=== PATIENT | male | born 1990 | race Two or more races ===

== ENCOUNTER 2025-02-18 09:13 | Emergency (ER) | payer BC ==
[~2025-02-18] VITALS: Ht 172.7 cm; Wt 125.6 kg
[2025-02-18 09:24] VITALS: TEMP 98.5
[2025-02-18] MEDS: methylPREDNISolone SOD SUCC 125 MG/2 ML VL IM ONE (10:00)
[2025-02-18 10:27] LABS: Hematocrit 50.0 % (41.0-53.0); Hemoglobin 17.2 g/dL (13.5-17.5); Mean Corpuscular Hemoglobin 30.0 pg (28.0-32.0); Mean Corpuscular Volume 87.3 fL (80.0-100.0); Nucleated Red Blood Cells % 0.2 %
--- NOTE | 2025-02-18 10:37 | ED.PDOC ---
Back pain HPI HPI Comments 34 year old male with no past medical history presents to the emergency department with a chief complaint of back pain onset 1 day. Patient states he was sitting down, stood up suddenly and shortly after began experiencing LT back pain. Patient also states pain was similar to when he had herniated discs in 2021. No other symptoms or modifying factors present at this time. Denies any history of cancer Denies fevers chills night sweats nausea vomiting unintentional weight loss Denies IV drug use history of HIV/TB Denies abdominal "tearing" pain Denies syncope Denies urinary incontinence or urinary changes Denies numbness tingling of the groin or inner thigh Chief Complaint: Back Pain Time Seen by MD: 10:00 Reviewed Notes: Nurses Notes, Medications, Allergies Allergies: Coded Allergies: Cyclobenzaprine (Verified Allergy, Unknown, 02/18/25) Ibuprofen (Verified Allergy, Unknown, 02/18/25) Home Meds Active Scripts Naproxen (Naproxen) 500 Mg Tab, 500 MG PO BIDPC for 10 Days, #20 TAB 0 Refills Prov:MADYSON TAMAYO NP 02/18/25 Methocarbamol (Methocarbamol) 500 Mg Tab, 500 MG PO Q8HP PRN for 10 Days, #30 TAB 0 Refills Prov:MADYSON TAMAYO NP 02/18/25 Information Source: Patient Mode of Arrival: Ambulatory Timing: Days Duration: Since onset Location of Back pain: (L) Lumbar Severity: Moderate Prehospital treatment: None Quality: Sharp Onset: Spontaneous Modifying Factors: Nothing Past Medical History PAST MEDICAL HISTORY: Denies Surgical History (Other): L4-L5 surgery Family History Family History: Reviewed,noncontributory to illness, No family hx of Cancer, No family hx of DM, No family hx of Heart vika, No family hx of HTN, No family hx ofKidney vika, No family hx of Liver vika, No family hx of Lung vika, No family hx of Stroke Social History Smoker: Non-Smoker Alcohol: Denies ETOH Use Drugs: Denies Drug Use Lives In: Home All Other Systems: Reviewed and Negative (as per HPI) Physical Exam General Appearance: Normal HEENT: Normal ENT Inspection, Pharynx Normal, TMs Normal Neck: Full Range of Motion, Non-Tender, Normal, Normal Inspection Respiratory: Chest Non-Tender, Lungs Clear, No Accessory Muscle Use, No Respiratory Distress, Normal Breath Sounds Cardiovascular: No Edema, No JVD, No Murmur, No Gallop, Normal Peripheral Pulses, Regular Rate/Rhythm Breast Exam: Deferred Gastrointestinal: No Organomegaly, Non Tender, No Pulsatile Mass, Normal Bowel Sounds, Soft Genitalia: Deferred Pelvic: Deferred Rectal: Deferred Extremities: No calf tenderness, Normal capillary refill, No pedal edema Musculoskeletal : Location: Left Extremity Location: Back (LT lumbosacral paraspinal TTP) Apperance: Normal Neurologic: Alert, vp training II-XII nml as Tested, No Motor Deficits, Normal Affect, Normal Mood, No Sensory Deficits Cerebellar Function: Normal Reflexes: Normal Skin: Dry, Normal Color, Warm Lymphatic: No Adenopathy Was a procedure done? Was a procedure done?: No Back Pain Differential Dx Differential Diagnosis: Musculoskeletal Pain X-Ray, Labs, Meds, VS Vital Signs Date Time Temp Pulse Resp B/P (MAP) Pulse Ox O2 Delivery O2 Flow Rate FiO2 02/18/25 10:50 91 18 97 Room Air 02/18/25 10:50 93 18 142/82 (102) 97 02/18/25 09:24 98.5 101 18 137/93 (108) 98 98.5 Lab Test 02/18/25 10:15 02/18/25 09:52 Range/Units White Blood Count 10.8 4.4-10.8 10^3/uL Red Blood Count 5.73 4.5-5.90 10^6/uL Hemoglobin 17.2 13.5-17.5 g/dL Hematocrit 50.0 41.0-53.0 % Mean Corpuscular Volume 87.3 80.0-100.0 fL Mean Corpuscular Hemoglobin 30.0 28.0-32.0 pg Mean Corpuscular Hemoglobin Concent 34.3 32.0-36.0 g/dL Red Cell Distribution Width 13.0 11.8-14.3 % Platelet Count 286 140-450 10^3/uL Mean Platelet Volume 9.8 6.9-10.8 fL Neutrophils (%) (Auto) 57.3 37.0-80.0 % Lymphocytes (%) (Auto) 31.4 10.0-50.0 % Monocytes (%) (Auto) 8.1 0.0-12.0 % Eosinophils (%) (Auto) 2.1 0.0-7.0 % Basophils (%) (Auto) 1.1 0.0-2.0 % Neutrophils # (Auto) 6.2 1.6-8.6 10 ^3/uL Lymphocytes # (Auto) 3.4 0.4-5.4 10 ^3/uL Monocytes # (Auto) 0.9 0-1.3 10 ^3/uL Eosinophils # (Auto) 0.2 0-0.8 10 ^3/uL Basophils # (Auto) 0.1 0-0.2 10 ^3/uL Nucleated Red Blood Cells 0.2 % Sodium Level 142 136-145 mmol/L Potassium Level 4.3 3.5-5.1 mmol/L Chloride Level 108 H 98-107 mmol/L Carbon Dioxide Level 25 20-31 mmol/L Anion Gap 9 5-15 Blood Urea Nitrogen 11 9-23 mg/dL Creatinine 1.01 0.700-1.30 mg/dL Glomerular Filtration Rate Calc 101 >90 mL/min BUN/Creatinine Ratio 10.9 10.0-20.0 Serum Glucose 107 H 74-106 mg/dL Calcium Level 10.3 8.7-10.4 mg/dL Urine Color Yellow Yellow Urine Clarity Clear Clear Urine pH 5.5 5.0-9.0 Urine Specific [place] 1.035 1.001-1.035 Urine Protein Trace H Negative Urine Ketones Negative Negative Urine Blood Negative Negative /uL Urine Nitrite Negative Negative Urine Bilirubin Negative Negative Urine Urobilinogen Normal Negative mg/dL Urine Leukocyte Esterase Negative Negative /uL Urine RBC 1 0 - 3 /hpf Urine Microscopic WBC < 1 0-3 /HPF Urine Squamous Epithelial Cells Few <5 /hpf Urine Bacteria None seen None Seen /hpf Urine Mucus Few None Seen Urine Glucose Normal Normal mg/dL [facility] [id number] [place] [address] Ph: [phone] DIAGNOSTIC IMAGING Diagnostic Imaging Report : [id number] Signed PATIENT: CHECO DANIELSONACCT: [id number] UNIT: [id number] : 1990 LOC: ER ROOM / BED: / AGE / SEX: 34 / M ADM STATUS: REG ER SERVICE [id number] ORDERING PHYSICIAN: MADYSON TAMAYO NP PROCEDURE(s): LUMB2 - LUMBAR SPINE 3 VIEW REASON: BP ORDER NUMBER(s): [id number], ACCESSION NUMBER(s): [id number] INDICATION: BP TECHNIQUE: 6 views of the thoracic lumbar spine were obtained. COMPARISON: None FINDINGS: There are no acute fractures or subluxations. IMPRESSION: No acute fracture or subluxation. ATED BY: RUSSELL CARLTON MD DICTATED DATE/TIME: 02/18/251034 SIGNED BY: RUSSELL CARLTON MD SIGNED DATE/TIME: 02/18/251034 CC: [place] [id number] Ph: [phone] DIAGNOSTIC IMAGING Diagnostic Imaging Report : [id number] Signed PATIENT: CHECO DANIELSONACCT: [id number] UNIT: [id number] : 1990 LOC: ER ROOM / BED: / AGE / SEX: 34 / M ADM STATUS: REG ER SERVICE 0952 ORDERING PHYSICIAN: MADYSON TAMAYO NP PROCEDURE(s): THOSP - SPINE THORACIC 2VIEW REASON: BP ORDER NUMBER(s): [id number], ACCESSION NUMBER(s): [id number] INDICATION: BP TECHNIQUE: 6 views of the thoracic lumbar spine were obtained. COMPARISON: None FINDINGS: There are no acute fractures or subluxations. IMPRESSION: No acute fracture or subluxation. ATED BY: RUSSELL CARLTON MD DICTATED DATE/TIME: 02/18/251034 SIGNED BY: RUSSELL CARLTON MD SIGNED DATE/TIME: 02/18/251034 CC: X-Ray, Labs, Meds, VS Comment 34 year old male with no past medical history presents to the emergency department with a chief complaint of back pain onset 1 day. Patient arrives alert and oriented, ABC's intact, afebrile, vital signs stable, saturating well in room air Peripheral IV insertion+ labs were ordered. CBC was ordered to exclude anemia, blood loss, or infection. BMP was ordered to exclude electrolyte abnormalities, renal failure, dehydration, hyperglycemia Urinalysis was ordered to rule out UTI or hematuria. Diagnostic imaging ordered by me and results interpreted by radiology : XR Lumbar spine 3V: IMPRESSION: No acute fracture or subluxation. spine thoracic 2 view: IMPRESSION: No acute fracture or subluxation. Patient was given: methylprednisolone 125 mg IM, [place] 10 mg. Tolerated medications with no adverse reaction. There were no red flags on physical exam. Consistent with musculo vs non emergent herniated disk No indicated for emergency MRI at this time Trial of NSAIDs and muscle relaxers Warm compresses Stretch as tolerated Strict return precautions discussed Additional MDM Review of External, Non-ED records: External records reviewed. Discussion with independent historian (EMS, family) history obtained from the patient/parents (if applicable) at bedside Chronic conditions affecting care: None Social determinants of health affecting care: None Consideration of admission (observation or admission): I considered escalation of care to admission for this patient, however given the reassuring workup, the patient is safe for outpatient management. Time of 1ST Reevaluation: 10:30 Reevaluation 1ST: Improved Patient Education/Counseling: Diagnosis, Treatment Family Education/Counseling: No Family Present SEPSIS Sepsis Screen Date sepsis recognized/suspect: Feb 18, 2025 Time Sepsis recognized/suspect: 923 Recent Procedure: No On Antibiotic Therapy: No Respiratory Rate >20: No Heart Rate >90: Yes Temp<36 C (96.8 F) or >38.3 C: No SBP <90 or MAP <65 mmHG: No New Acute Mental Status Change: No Is the patient on CPAP, BIPAP,: No Physician Orders Lumbar Spine 3 View (02/18/25 09:52) Spine Thoracic 2view (02/18/25 09:52) Vital Signs Date Time Temp Pulse Resp B/P (MAP) Pulse Ox O2 Delivery O2 Flow Rate FiO2 02/18/25 10:50 91 18 97 Room Air 02/18/25 10:50 93 18 142/82 (102) 97 02/18/25 09:24 98.5 101 18 137/93 (108) 98 98.5 Laboratory Tests Test 02/18/25 10:15 White Blood Count 10.8 10^3/uL (4.4-10.8) Departure 1 Departure Time of Disposition: 11:39 Impression: Primary Impression: Back strain Qualified Codes: S39.012A - Strain of muscle, fascia and tendon of lower back, initial encounter Disposition: HOME / SELF CARE / HOMELESS Condition: Stable e-Prescriptions Naproxen (Naproxen) 500 Mg Tab 500 MG PO BIDPC for 10 Days, #20 TAB 0 Refills Prov: MADYSON TAMAYO PEDIATRIC PHYSIATRIST 02/18/25 Methocarbamol (Methocarbamol) 500 Mg Tab 500 MG PO Q8HP PRN for 10 Days, #30 TAB 0 Refills Prov: MADYSON TAMAYO PEDIATRIC PHYSIATRIST 02/18/25 Critical Care Note Critical Care Time?: No Stability Stability form required: No Heart Score Heart Score: Heart Score Response (Comments) Value History N/A 0 EKG N/A 0 Age N/A 0 Risk Factors N/A 0 Troponin N/A 0 Total 0 I personally scribed for MADYSON TAMAYO PEDIATRIC PHYSIATRIST ([email or web address]) on 02/18/25 at 10:37. Electronically submitted by Fang Sheldon ([email or web address]). I personally scribed for MADYSON TAMAYO PEDIATRIC PHYSIATRIST ([email or web address]) on 02/18/25 at 11:00. Electronically submitted by Fang Sheldon ([email or web address]). I personally scribed for MADYSON TAMAYO PEDIATRIC PHYSIATRIST ([email or web address]) on 02/18/25 at 11:03. Electronically submitted by Fang Sheldon ([email or web address]). MADYSON TAMAYO NP Feb 18, 2025 10:37
[2025-02-18 10:40] LABS: Potassium 4.3 mmol/L (3.5-5.1); Sodium 142 mmol/L (136-145)
[2025-02-18 10:41] LABS: Anion Gap 9 (5-15); Carbon Dioxide 25 mmol/L (20-31)
[2025-02-18 10:42] LABS: Calcium 10.3 mg/dL (8.7-10.4); Chloride 108 mmol/L (98-107)
[2025-02-18] MEDS: HYDROcodone-ACET 10/325MG TAB PO ONE (10:45)
[2025-02-18 10:46] LABS: Urine Protein, UAD TRACE (Negative)
[2025-02-18 10:46] LABS: BUN/Creatinine Ratio 10.9 (10.0-20.0); Blood Urea Nitrogen 11 mg/dL (9-23)
[2025-02-18 10:50] VITALS: BP 142/82; PULSE 91; RESP 18; O2SAT 97
[2025-02-18 10:50] LABS: Glucose 107 mg/dL (74-106)
[2025-02-18] MEDS ORDERED: NAPR-746 PO (11:41)
[2025-02-18] MEDS ORDERED: METH-1181 PO (11:41)
== END 2025-02-18 11:50 | disposition home or self-care (01) ==
LOC: ER 09:13
DX: S39.012A Strain of muscle, fascia and tendon of lower back, initial encounter (principal); Z88.6 Allergy status to analgesic agent; X58.XXXA Exposure to other specified factors, initial encounter; Y93.89 Activity, other specified; Y92.89 Other specified places as the place of occurrence of the external cause; Y99.8 Other external cause status
CPT/HCPCS: 36415; 72070; 72100; 80048; 81001; 85025; 96372; 99284; J2919